=== PATIENT | female | born 1980 | race Caucasian/White ===

== ENCOUNTER 2021-11-17 17:09 | Inpatient (IN) | payer MEDICAID, SELFPAY ==
[2021-11-17] VITALS (12 sets, daily range): BP systolic 101–152; BP diastolic 48–88; PULSE 65–80; RESP 15–22; TEMP 36.1–36.4; O2SAT 97–100; BMI 51.5
--- NOTE | ~2021-11-17 | XR_ITS ---
EXAMINATION: XR chest 2V DATE: 11/17/2021 17:46 INDICATION: Left chest pain TECHNIQUE: PA and lateral views of the chest are obtained. COMPARISON: None available FINDINGS: The lungs are free of acute opacities. There is no pleural effusion or pneumothorax. The ca rdiomediastinal silhouette is normal. There is mild thoracic spondylosis. Surgical clips in the right upper quadrant are likely from prior cholecystectomy. IMPRESSION: 1. No acute cardiopulmonary abnormality. Reviewed, dictated and finalized at location F.
--- NOTE | ~2021-11-17 | CT_ITS ---
EXAMINATION: CTA chest PE protocol DATE: 11/19/2021 10:20 INDICATION: sob, elevated trop TECHNIQUE: Computed tomography angiography (CTA) of the chest was performed with 100 mL Omnipaque-350 intravenous contrast timed to evaluate the pulmonary arteries. Coronal maximum intensity projection 3D-reconstructions were created by the technologist. The dose-length product (DLP) was 969.83 mGy-cm. Automated exposure control and iterative reconstruction technique were employed. COMPARISON: 11/17/2021, x-ray chest. FINDINGS: Study quality: Adequate. Pulmonary arteries: No pulmonary emboli detected. Thoracic aorta: Normal. Lung parenchyma and airways: Clear. Thoracic inlet, axillae and chest wall: Unremarkable. Mediastinum: Normal. Heart and pericardium: Normal. Coronary artery calcifications: Absent. Pleura: Unremarkable. Upper abdomen: No significant finding. Bones: No acute osseous finding. IMPRESSION: No CT evidence of acute pulmonary embolus. Reviewed, dictated and finalized at location K.
--- NOTE | 2021-11-17 17:11 | ECG_ITS ---
Measurements Intervals [place] Rate: 66 P: 10 PA: 138 QRS: -5 QRSD: 102 T: 49 QT: 415 QTc: 435 Interpretive Statements SINUS RHYTHM POOR R-WAVE PROGRESSION INFERIOR MYOCARDIAL INFARCTION , PROBABLY OLD [40+ ms Q WAVE AND/OR ST/T ABNORMALITY IN II/aVF] NO PREVIOUS ECG AVAILABLE FOR COMPARISON Electronically Signed On 11-18-2021 7:50:54 CDT by Ruben Smith M.D.
[2021-11-17] MEDS: ASPIRIN 81 MG CHEWABLE TABLET 324 MG PO (17:35)
[2021-11-17 18:07] LABS: Basophils Absolute Auto 0.1 K/mm3 (0.0-0.1); Basophils Percent Auto 0.4 % (0.2-1.2); Eosinophils Absolute Auto 0.5 K/mm3 (0-0.3); Eosinophils Percent Auto 3.7 % (0-4.4); Hematocrit 43.4 % (37.0-47.0); Hemoglobin 14.2 g/dL (12.0-15.0); Immature Granulocyte Absolute 0.07 K/mm3 (0.00-0.031); Immature Granulocyte Percent A 0.5 % (0-0.5); Lymphocytes Absolute Auto 2.15 K/mm3 (0.9-3.2); Mean Corpuscular HGB Conc 32.7 g/dl (32-36); Mean Corpuscular Hemoglobin 30.1 pg (26-34); Mean Corpuscular Volume 91.9 fl (80-100); Mean Platelet Volume 10.3 fl (7.4-10.4); Monocytes Absolute Auto 0.7 K/mm3 (0.1-0.6); Neutrophils Absolute Auto 10.8 K/mm3 (1.3-6.7); Neutrophils Percent Auto 75.4 % (45.5-73.1); Platelet Count Result 331 k/mm3 (150-375); Red Blood Count 4.72 M/mm3 (4.2-5.4); Red Cell Distribution Width 13.2 % (11.5-14.5); White Blood Count 14.3 K/mm3 (4.5-10.0)
[2021-11-17 18:17] LABS: Alanine Aminotransferase 21 U/L (6-35); Albumin Level 4.5 g/dL (3.5-5.1); Alkaline Phosphatase 99 U/L (38-126); Anion Gap 10 mmol/L (8-16); Aspartate Amino Transferase 25 U/L (14-36); Bilirubin,Total 0.2 mg/dL (0.2-1.3); Blood Urea Nitrogen 15 mg/dL (7-17); Carbon Dioxide 27 mmol/L (22-30); Chloride 100 mmol/L (98-107); Estimated CRCL calculation 101 ml/min; Estimated Glomerular Filt Rate > 60; Glucose 162 mg/dL (65-110); Lipase 145 U/L (23-300); Potassium 3.3 mmol/L (3.4-5.0); Sodium 137 mmol/L (137-145)
[2021-11-17 18:19] LABS: Prothrombin Time 12.6 Seconds (11.1-14.7)
[2021-11-17 18:20] LABS: Partial Thromboplastin Time 30.7 SECONDS (22.3-36.8)
--- NOTE | 2021-11-17 18:27 | ED.CHESTPAIN ---
HPI - Chest Pain General Chief Complaint: Chest Pain Stated Complaint: left chest pain that began three hours ago Time Seen by Provider: 11/17/21 17:20 Source: patient Mode of arrival: ambulatory Limitations: no limitations History of Present Illness HPI narrative: 41-year-old with a history of hypertension here with complaints of left-sided chest pain started few hours ago. Patient states that each episode lasts about 15 to 20 minutes radiating into her left shoulder associated with some shortness of breath. Patient denies having any previous history of CAD. Patient states her mom was recently had an OR. She denies any cough or fever MD complaint: chest pain Onset (ago): hour(s) (4) Timing of current episode: episodic Prior episodes: No Onset: during rest Pain location: left chest Pain radiation: left arm Severity: moderate Relieving factors: nothing Exacerbating factors: nothing Risk Factors Coronary artery disease risk factors: smoking history and hypertension Thoracic aortic dissection risk factors: none Related Data On Oral Contraceptives: No Allergies Allergy/AdvReac Type Severity Reaction Status Date / Time Sulfa (Sulfonamide Allergy Unknown Other Verified 11/17/21 17:26 Antibiotics) sulfanilamide Allergy Unknown Other Verified 11/17/21 17:26 SULFAMETHIZOLE (Generic Allergy Unknown Y Uncoded 08/04/04 11:33 Allergy) Review of Systems Review of Systems: All systems reviewed & are unremarkable except as noted in HPI and below Constitutional: Constitutional: Reports no additional constitutional complaints Eyes: Eyes: Reports no additional eye complaints ENT: Reports system reviewed and no additional complaints, except as documented Cardiovascular: Cardiovascular: Reports as per HPI Respiratory: Respiratory: Reports no additional respiratory complaints Gastrointestinal: Gastrointestinal: Reports no additional gastrointestinal complaints Genitourinary: Genitourinary: Reports no additional female genitourinary complaints Musculoskeletal: Musculoskeletal: Reports no additional musculoskeletal complaints Integumentary/Breasts: Skin/Breast: Reports system reviewed and no additional complaints, except as docu PMFSH Family History Family History (Updated 09/15/10 @ 11:47 by DOCTOR UNKNOWN) Other Hypertension Social History Social History Alcohol intake: current Exam Narrative: GENERAL: Well-appearing, well-nourished, and in no acute distress. HEAD: Normocephalic, atraumatic. EYES: PERRLA and EOMI.. NECK: Supple. CHEST: Clear to auscultation. No respiratory distress. HEART: Regular rate and rhythm. No murmur heard. Normal peripheral pulses. ABDOMEN: Soft, nontender, nondistended, normal active bowel sounds. EXTREMITIES: Normal range of motion. No edema. SKIN: Warm, dry, no rash. NEURO: No focal deficits. Alert and oriented x3. PSYCH: Normal mood and affect. Course Course Emergency Course: 21-year-old with a history of hypertension, smoking now having intermittent chest pain for last 4 hours with mild shortness of breath EKG shows subtle changes in the inferior leads. Upon arrival to the ER patient had no pain. Informed patient about her lab work agreed for admission. Discussed with the hospitalist agreed to admit Discussed with Dr. Luna recommended beta-deedee, statin and Lovenox will see the patient in Vital Signs Vital signs: Vital Signs Pulse Rate 65 11/17/21 17:12 Respiratory Rate 20 11/17/21 17:12 Blood Pressure 121/62 11/17/21 17:12 Pulse Oximetry 99 11/17/21 17:12 Oxygen Delivery Room Air 11/17/21 17:12 Pulse Rate 69 11/17/21 18:43 Respiratory Rate 22 H 11/17/21 18:43 Blood Pressure 129/60 11/17/21 18:43 Pulse Oximetry 99 11/17/21 18:43 Oxygen Delivery Room Air 11/17/21 17:12 MDM - Chest Pain Differential Diagnosis Differential diagnosis: Likely unstable angina pectoris, atypical chest pain, st elevation myocard
[2021-11-17 18:31] LABS: Troponin I 0.039 ng/mL (0.000-0.034)
[2021-11-17] MEDS: METOPROLOL TARTRATE 50 MG TAB 25 MG PO (18:53)
[2021-11-17] MEDS: ENOXAPARIN 80 MG/0.8 ML SYRINGE 140 MG SUB-Q (18:54)
--- NOTE | 2021-11-17 19:31 | PM.IMHP ---
H&P: HPI History of Present Illness Date/Time: 11/17/21 19:31 Chief Complaint: Chest pain Narrative: This is a 41-year-old female with past medical history significant for hypertension, morbid obesity, tobacco dependence. Patient presents to the emergency room due to chest pain localized to the precordial area pain started at rest has been ongoing for the last 3 hours or so prior to presentation to emergency room with profuse diaphoresis, dizziness, and shortness of breath, near-syncope, pain is localized in the precordial area nonradiating, she rates it at 9/10 in intensity, denies having pain in the prior days or months, denies any fevers, rigors, chills, cough, nausea, vomiting, abdominal pain, diarrhea, calf swelling, ankle swelling, PND, orthopnea. Patient did not try any home medications. Patient preliminary workup was significant for elevated troponins and EKG with Q-waves however no prior for comparison. Patient is being admitted for further evaluation management and treatment. Review of Systems Review of Systems: Chest pain, dizziness, diaphoresis, near syncope. Constitutional: Constitutional: Denies chills, Denies fever(s), Denies malaise, Denies night sweats, Denies poor appetite and Denies weakness Eyes: Eyes: Denies change in vision ENT: Denies dysphagia, Reports dizziness and Denies odynophagia Cardiovascular: Cardiovascular: Reports chest pain, Reports chest pain at rest, Denies syncope, Denies pedal edema, Denies irregular heart rhythm, Reports lightheadedness, Denies radiating jaw, neck or arm pain, Denies palpitations, Denies dyspnea, Denies dyspnea on exertion, Denies orthopnea and Denies paroxysmal nocturnal dyspnea Respiratory: Respiratory: Denies chest congestion, Denies cough and Denies excessive phlegm production Gastrointestinal: Gastrointestinal: Denies abdominal pain, Denies dyspepsia, Denies heartburn, Denies nausea and Denies vomiting Genitourinary: Genitourinary: Denies dysuria Musculoskeletal: Musculoskeletal: Denies abnormal gait and Denies joint swelling Integumentary/Breasts: Skin/Breast: Denies rash Neurologic: Denies focal weakness and Denies Sensory deficit (Neuro) Psychiatric: Psychiatric: Reports no additional psychiatric complaints and Reports as per HPI Endocrine: Endocrine: Denies cold intolerance, Denies fatigue, Denies flushing, Denies heat intolerance, Denies polyphagia, Denies polydipsia and Denies palpitations Hematologic/Lymphatic: Hematologic/Lymphatic: Reports no additional hematologic/lymphatic complaints and Reports as per HPI Allergic/Immunologic: Allergic/Immunologic: Reports no additional allergic/immunologic complaints and Reports as per HPI [facility] Family History Family History (Updated 11/17/21 @ 21:18 by Yoanna Munoz RN) Mother Hypertension Acute myocardial infarction Father Hypertension Diabetes mellitus Prostate carcinoma Social History Social History Smoking packs per day: 0.5 Smoking cigarettes per day: 10.0 Years smoked: 15 Smoking pack-years: 7.50 Smoking status: Heavy tobacco smoker Tobacco type: cigarettes Second hand tobacco smoke exposure: Yes Alcohol intake: current Drinks per week: 1 Substance use: never Spiritual care concerns: No Meds Home Medications and Allergies Home Medications Medication Instructions Recorded Confirmed Type atenolol 100 mg tablet 1 tablet PO DAILY 11/17/21 11/17/21 History cetirizine 10 mg tablet 1 tablet PO DAILY 11/17/21 11/17/21 History lisinopril 20 2 tablet PO DAILY 11/17/21 11/17/21 History mg-hydrochlorothiazide 12.5 mg tablet norgestimate-ethinyl estradiol 1 tablet PO DAILY 11/17/21 11/17/21 History 0.18 mg/0.215mg/0.25mg-35 mcg(28)tablet (Tri-Sprintec (28)) Allergies Allergy/AdvReac Type Severity Reaction Status Date / Time Sulfa (Sulfonamide Allergy Unknown Other Verified 11/17/21 17:26 Antibiotics) sulfanilamide Allergy Unknown Other Ve
[2021-11-17] MEDS: ATORVASTATIN 40 MG TABLET PO (19:43)
[2021-11-17 19:55] LABS: SARS-CoV-2 RNA PCR Negative
--- NOTE | 2021-11-17 20:35 | PC.NURSE ---
Called IMU to give report. Report not taken at this time.
[2021-11-17 21:29] LABS: Troponin I 0.089 ng/mL (0.000-0.034)
--- NOTE | 2021-11-17 21:56 | ADMIMU ---
This patient, Jesi Charlton, was admitted to IMU status, and placed in IMU Room 205-02 on 11/17/21 at 2110. Patient/family oriented to hospital policies and general routines including ID bracelet, bed and alarms, visiting hours, pain management, procedures, bathroom and other care routines, personal items, smoking policy, room service/diet, and visiting hours. Information on how to activate the Rapid Response Team has been discussed. Patient/Family are encouraged to report perceived risks to care and to ask questions if they do not understand what they are told or what they should do.
--- NOTE | 2021-11-17 22:19 | PC.NURSE ---
This patient, Jesi Charlton, was admitted to IMU Room 205-02 on 11/17/21 at 2110. Patient/family oriented to hospital policies and general routines including ID bracelet, bed and alarms, visiting hours, pain management, procedures, bathroom and other care routines, personal items, smoking policy, room service/diet, and visiting hours. Information on how to activate the Rapid Response Team has been discussed. Patient/Family are encouraged to report perceived risks to care and to ask questions if they do not understand what they are told or what they should do.
[2021-11-17] MEDS: SODIUM CHLORIDE 0.9% IV 1,000 ML 125 ML IV CONT (23:44)
[2021-11-17] MEDS: NITROGLYCERIN OINTMENT 1 INCH DOSE TRANSDERM (23:44)
[2021-11-18] VITALS (14 sets, daily range): BP systolic 109–123; BP diastolic 55–70; PULSE 53–99; RESP 16–20; TEMP 36.2–36.7; O2SAT 97–99
--- NOTE | 2021-11-18 | ECHO_ITS ---
Patient Info Name: Jesi Charlton Age: 41 years : 1980 Gender: Female Ht: 65 in Wt: 310 lbs BSA: 2.63 m2 HR: 79 bpm BP: 123 / 67 mmHg Heart Rhythm: Sinus Rhythm Technical Quality: Fair Exam Date: 11/18/2021 7:59 AM Exam Location: [facility] Card Pulmonary Patient Status: Inpatient Admit Date: 11/17/2021 Staff Ordering Physician: Markos Lundy MD Storage Battery Charger: Daniela Cortez RDCS Attending Provider: Suzi Harrell DO Referring Physician: Nikkie CHATTERJEE; Exam Type: CA echo dop color flow w con Study Info Indications R07.9 - Chest pain, unspecified Complete two-dimensional, color flow and Doppler transthoracic echocardiogram is performed with contrast to opacify the left ventricle and to improve the deliniation of the left ventricle endocardial borders. Contrast/Agitated Saline Contrast/Ag. Saline: Definity Amount: 4.00 ml Summary 1. Technically difficult image quality because of obesity. 2. Following definity contrast injection LV systolic function is well seen and appears to be normal. 3. Modest left atrial enlargement. 4. No significant valvular dysfunction detected by Doppler. Left Ventricle Left ventricular chamber dimension is normal. Left ventricular systolic function is normal, estimated at 65-70%. The left ventricular diastolic function is normal. Right Ventricle Right ventricular chamber dimension is normal. Left Atria Left atrial chamber dimension is mildly enlarged. Right Atria Right atrial chamber dimension is normal. Aortic Valve The aortic valve is not well visualized. There is no aortic valve stenosis. Pulmonic Valve The pulmonic valve is not well visualized. Mitral Valve The mitral valve has normal leaflets. Tricuspid Valve The tricuspid valve leaflets are normal. Pericardium/Pleural The pericardium appears normal. Aorta The aortic root size at the sinus of Valsalva is normal. Left Ventricular Outflow Tract Name Value Normal LVOT 2D LVOT Diameter 2.00 cm LVOT Doppler LVOT Peak Gradient 6 mmHg LVOT Mean Gradient 2 mmHg LVOT VTI 28.60 cm LVOT VTI/AV VTI Ratio 0.96 LVOT Stroke Volume 89.57 ml LVOT CO 6.35 l/min LVOT CI 2.42 L/min/m2 Pulmonic Valve Name Value Normal PV Doppler PV Peak Gradient 8 mmHg Mitral Valve Name Value Normal MV Doppler MV Decel [place] 411.61
[2021-11-18 00:45] LABS: Troponin I 0.095 ng/mL (0.000-0.034)
[2021-11-18] MEDS: NITROGLYCERIN OINTMENT 1 INCH DOSE TRANSDERM ×4 (06:20→23:59)
[2021-11-18] MEDS: ENOXAPARIN 60 MG/0.6 ML SYRINGE SUB-Q ×2 (06:21→19:32)
[2021-11-18] MEDS: ENOXAPARIN 80 MG/0.8 ML SYRINGE SUB-Q ×2 (06:21→19:32)
[2021-11-18] MEDS: SODIUM CHLORIDE 0.9% IV 1,000 ML 125 ML IV CONT (08:42)
[2021-11-18] MEDS: atenoloL 50 MG TABLET 100 MG PO (08:43)
[2021-11-18] MEDS: lisinopriL 20 MG TABLET 40 MG PO (08:43)
[2021-11-18] MEDS: LORATADINE 10 MG TABLET PO (08:43)
[2021-11-18] MEDS: ASPIRIN 81 MG CHEWABLE TABLET PO (08:43)
--- NOTE | 2021-11-18 09:29 | PM.IMPN ---
Progress Note: A&P Assessment and Plan (1) Non-ST elevation (NSTEMI) myocardial infarction: Code(s): I21.4 - Non-ST elevation (NSTEMI) myocardial infarction <Di Werner ZACHARY LeonardC - Last Filed: 11/18/21 09:38> Status: Acute <Di Pricerao PA-C - Last Filed: 11/18/21 09:38> Assessment and Plan: Symptoms and troponin abnormalities worrisome for cardiac etiology -Troponins appear relatively flat and patient has not had any further symptoms -telemetry without abnormalities -EKG shows possible history of IA -will order echo, BNP, and another troponin -consider PE since the patient has a history of unprovoked DVT, smokes, on control, and recently traveled by vehicle to floor down. Will obtain CTA. -continue Lovenox 80 mg every 12 hours for possible cardiac etiology -plan discussed with Cardiology <Di WatsonRABIA Banks-C - Last Filed: 11/18/21 09:38> (2) Hypertension: Code(s): I10 - Essential (primary) hypertension <Di Werner Horacio PA-C - Last Filed: 11/18/21 09:38> Status: Acute <Di Werner Horacio PA-C - Last Filed: 11/18/21 09:38> Assessment and Plan: Last blood pressure 111/55 -continue atenolol and lisinopril <Di Alphonso Horacio PA-C - Last Filed: 11/18/21 09:38> (3) Tobacco dependence: Code(s): F17.200 - Nicotine dependence, unspecified, uncomplicated <Di Pricerao PA-C - Last Filed: 11/18/21 09:38> Status: Acute <Di Werner Horacio PA-C - Last Filed: 11/18/21 09:38> Assessment and Plan: Patient is aware that she needs to quit smoking especially due to her history of blood clots and current control -nicotine patch applied <Di WatsonRABIA Banks-C - Last Filed: 11/18/21 09:38> (4) Hypokalemia: Code(s): E87.6 - Hypokalemia <Di Leonard PA-C - Last Filed: 11/18/21 09:38> Status: Acute <JASPER Ray Last Filed: 11/18/21 09:38> Assessment and Plan: Noted to be 3.3 yesterday. Repeat BMP as well as magnesium. Supplement as needed <JASPER Ray Last Filed: 11/18/21 09:38> Time Spent With Patient Time with patient: 25 - 35 minutes <JASPER Ray Last Filed: 11/18/21 09:38> Subjective Date/time seen: 11/18/21 09:29 <JASPER Ray Last Filed: 11/18/21 09:38> Interval history: Pt is a 41-year-old female here for chest pain. Patient states yesterday when she was sitting watching TV she started getting very sweaty is starting having chest pain as well as arm pain. Since she has been at the hospital she has not had any of these issues. She has no cardiac history. She does tell me that she had a unprovoked DVT back in 2007. She continues to smoke, is on control, and recently drove to [place] 2 weeks ago. She denies leg swelling or shortness of breath currently and is currently hungry. <Di Leonard PA-C - Last Filed: 11/18/21 09:38> Review of Systems Review of Systems: All systems reviewed & are unremarkable except as noted in HPI and below <JASPER Ray Last Filed: 11/18/21 09:38> Exam Narrative: General: Overweight patient was a comfortably in bed no acute distress HEENT: normocephalic Neck: supple Neuro: Alert and oriented x4 CV:RRR with no murmurs. Telemetry with no abnormalities Resp:CTA Abd: Soft, non distended. No pain to palpation. Positive bowel sounds Extremities: No swelling, erythema, or pain to palpation. <JASPER Ray Last Filed: 11/18/21 09:38> Objective Data Vital Signs Vital Signs: Vital Signs - 24 hr 11/17/21 17:12 11/17/21 17:23 11/17/21 17:25 Temperature Pulse Rate 65 70 70 Respiratory Rate 20 18 Blood Pressure 121/62 107/72 Pulse Oximetry 99 99 Oxygen Delivery Room Air 11/17/21 18:43 11/17/21 18:53 11/17/21 18:59 Temperature Pulse Rate 69 73 75 Respiratory Rate 22 H 15 Blood Pressure 129/60
[2021-11-18 09:41] LABS: Anion Gap 7 mmol/L (8-16); Blood Urea Nitrogen 11 mg/dL (7-17); Calcium 8.5 mg/dL (8.4-10.2); Carbon Dioxide 27 mmol/L (22-30); Chloride 102 mmol/L (98-107); Estimated CRCL calculation 127 ml/min; Estimated Glomerular Filt Rate > 60; Glucose 96 mg/dL (65-110); Magnesium 1.6 mg/dL (1.6-2.3); Potassium 3.5 mmol/L (3.4-5.0); Sodium 136 mmol/L (137-145)
--- NOTE | 2021-11-18 09:47 | PM.CNCAR ---
Assessment and Plan Assessment and plan (1) Chest pain: Code(s): R07.9 - Chest pain, unspecified Status: Acute Plan This is a 41-year-old woman who had several episodes of waxing waning chest pain yesterday prompting admission to the hospital. Her troponin levels are slightly elevated but flat, not really a convincing pattern for acute coronary syndrome. Her ECG is not normal with some inferior Q-waves but no acute ST segment changes. The hospitalist team has appropriately ordered a CT angiogram of her chest since she does have risk for PE being a smoker, on control pills and prior history of venous thrombosis. An echocardiogram has also been weak performed. If her CTA of the chest demonstrates a PE that I would not pursue further cardiac assessment at this time. If she does not have a pulmonary embolism we will need to recommend angiography which I would anticipate doing on Saturday since she appears to be quite stable. Ruben Smith MD [facility] History of Present Illness History of Present Illness Consult date/time: 11/18/21 09:47 Consult reason: chest pain Reason For Visit: NSTEMI Narrative: This is a 41-year-old woman who is unknown to me prior to this encounter. Very interestingly her mother is in the hospital recovering from a myocardial infarction from some couple of days ago. The patient was at home yesterday afternoon watching a television show and suddenly noticed she was feeling unwell she said she had a strange sensation in her chest that was shortly after that followed by the sense of weakness diaphoresis and some nausea. She then had more significant retrosternal pressure-like chest pain radiating to the left side of the midline. She stated she has several of these episodes in a waxing and waning fashion each episode lasting for 10-20 minutes at a time. After several of these she had her family bring her to the emergency room for evaluation. In the emergency department her ECG shows a sinus mechanism with Q-waves in the 2 of the 3 inferior leads but no significant ST segment deviation. Troponin levels are slightly out of normal range and are essentially flat. She was treated with aspirin in the emergency room after I was consulted I advised them to administer a dose of Lovenox, beta-deedee and a statin and she was admitted to the IMU. She has been free of these symptoms since admission to the IMU. She is a longstanding cigarette smoker and does have a prior history of venous thrombosis. I do not have records of that event available to me as I dictate this she was treated in the hospital and by Dr. Acosta, her PCP. She thinks this occurred back in about 2007. She denies any symptoms of exertional chest pain she has not been experiencing any orthopnea PND or edema. She does have some occasional momentary palpitations that have not been investigated further. She has never had any symptoms of syncope or near syncope. An echocardiogram has been performed this morning which has yet to be interpreted. A CT angiogram of her chest is also being ordered. She does have a history of a significant automobile trip recently with her mother. Review of Systems Constitutional: Constitutional: Reports no additional constitutional complaints Eyes: Eyes: Reports no additional eye complaints ENT: Reports system reviewed and no additional complaints, except as documented Cardiovascular: Cardiovascular: Reports as per HPI Respiratory: Respiratory: Reports no additional respiratory complaints Gastrointestinal: Gastrointestinal: Reports no additional gastrointestinal complaints Musculoskeletal: Musculoskeletal: Reports no additional musculoskeletal complaints Integumentary/Breasts: Skin/Breast: Reports system reviewed and no additional complaints, except as docu Neurologic: Reports system reviewed and no additional complaints, except as documented Endocrine: Endocrine: Reports no additional endocrine complaints
[2021-11-18 09:59] LABS: NT Pro B Type Natriuretic Pept 164 pg/mL (5-100)
[2021-11-18] MEDS: PERFLUTREN LIPID MICROSPHERES 1.5 ML VIAL DILUTED TO 10 ML TOTAL VOLUME IV PUSH (10:00)
[2021-11-18] MEDS: CENTRAL LINE FLUSH 10 ML IV PUSH (21:02)
[2021-11-19] VITALS (12 sets, daily range): BP systolic 114–162; BP diastolic 60–81; PULSE 61–83; RESP 16–20; TEMP 36.1–36.8; O2SAT 94–100
[2021-11-19] MEDS: CENTRAL LINE FLUSH 10 ML IV PUSH ×3 (04:28→22:37)
[2021-11-19] MEDS: CENTRAL LINE FLUSH 20 ML IV PUSH (04:28)
[2021-11-19 04:42] LABS: Hematocrit 35.4 % (37.0-47.0); Hemoglobin 12.1 g/dL (12.0-15.0); Mean Corpuscular HGB Conc 34.2 g/dl (32-36); Mean Corpuscular Hemoglobin 30.4 pg (26-34); Mean Corpuscular Volume 88.9 fl (80-100); Mean Platelet Volume 10.4 fl (7.4-10.4); Platelet Count Result 292 k/mm3 (150-375); Red Blood Count 3.98 M/mm3 (4.2-5.4); Red Cell Distribution Width 12.8 % (11.5-14.5); White Blood Count 11.2 K/mm3 (4.5-10.0)
[2021-11-19 04:49] LABS: Anion Gap 3 mmol/L (8-16); Blood Urea Nitrogen 9 mg/dL (7-17); Calcium 8.4 mg/dL (8.4-10.2); Carbon Dioxide 30 mmol/L (22-30); Chloride 102 mmol/L (98-107); Cholesterol 150 mg/dL (0-200); Estimated CRCL calculation 127 ml/min; Estimated Glomerular Filt Rate > 60; Glucose 93 mg/dL (65-110); HDL Direct 25 mg/dL; Potassium 3.4 mmol/L (3.4-5.0); Sodium 135 mmol/L (137-145); Triglycerides 390 mg/dL (<150)
[2021-11-19 04:59] LABS: LDL Cholesterol Direct 76 mg/dL
[2021-11-19] MEDS: NITROGLYCERIN OINTMENT 1 INCH DOSE TRANSDERM ×4 (06:16→23:54)
[2021-11-19] MEDS: ENOXAPARIN 60 MG/0.6 ML SYRINGE SUB-Q ×2 (06:17→19:12)
[2021-11-19] MEDS: ENOXAPARIN 80 MG/0.8 ML SYRINGE SUB-Q ×2 (06:17→19:11)
--- NOTE | 2021-11-19 09:11 | PM.PNCARD ---
Progress Note: A&P Assessment and Plan (1) Chest pain: Code(s): R07.9 - Chest pain, unspecified Status: Acute Plan 41-year-old lady with episodes of chest pain prompting admission to the hospital. Plans are to get this CTA of the chest done today. If she does not have a pulmonary embolism I did recommend proceeding with coronary angiography. The patient feels well now she is wondering if angiography can be done as an outpatient. Will discuss this further with her after we see the CTA results Ruben Smith MD [facility] Subjective Date/time seen: Date of service: 11/19/21 09:11 Interval history: Follow-up visit in this 41-year-old woman with: Episode of chest pain small troponin rise creating concern for CAD/ACS. Patient also was significant risk for pulmonary embolism. CTA of the chest was ordered yesterday but a surprisingly could not be done apparently the Radiology Department was very busy with ER case is and she did not have adequate IV access until later in the day. She is asymptomatic today and has no complaints Exam Const: General: comfortable and no acute distress Other: Pleasant obese lady no distress HENMT: Mouth: Yes moist mucous membranes Eyes: Sclera: sclerae normal Pupils: Equal, round and reactive pupils present Neck: Neck: supple and no JVD Other: Carotids intact no bruits Resp: Effort & Inspection: normal respiratory effort Auscultation: clear to auscultation bilaterally Cardio: Rate: regular rate Rhythm: regular rhythm Other: PMI not palpable otherwise unremarkable exam GI: GI Palp: Yes Soft to palpation Auscultation: normal bowel sounds Skin: General skin exam: normal color Neuro: Other: Patient has no edema good perfusion Extrem: General: normal to inspection Objective Data Vital Signs Vital Signs: Vital Signs - 24 hr 11/18/21 10:00 11/18/21 12:00 11/18/21 12:00 Temperature 36.4 C Pulse Rate 65 61 65 Respiratory Rate 20 Blood Pressure 109/63 Pulse Oximetry 98 Oxygen Delivery 11/18/21 14:00 11/18/21 16:00 11/18/21 16:00 Temperature 36.3 C L Pulse Rate 65 53 L 64 Respiratory Rate 20 Blood Pressure 114/61 Pulse Oximetry 98 Oxygen Delivery 11/18/21 18:00 11/18/21 20:00 11/18/21 20:00 Temperature 36.2 C L Pulse Rate 72 66 66 Respiratory Rate 18 18 Blood Pressure 117/70 Pulse Oximetry 97 97 Oxygen Delivery Room Air 11/18/21 20:00 11/18/21 22:00 11/19/21 00:00 Temperature 36.1 C L Pulse Rate 72 66 69 Respiratory Rate 16 Blood Pressure 123/60 Pulse Oximetry 98 Oxygen Delivery 11/18/21 23:56 11/19/21 00:00 11/19/21 01:48 Temperature Pulse Rate 69 80 73 Respiratory Rate 16 Blood Pressure Pulse Oximetry 98 Oxygen Delivery Room Air 11/19/21 04:00 11/19/21 04:00 11/19/21 04:00 Temperature 36.2 C L Pulse Rate 67 68 68 Respiratory Rate 16 16 Blood Pressure 114/71 Pulse Oximetry 94 94 Oxygen Delivery Room Air 11/19/21 05:36 11/19/21 08:00 Temperature 36.4 C L Pulse Rate 71 71 Respiratory Rate 20 Blood Pressure 141/81 H Pulse Oximetry 98 Oxygen Delivery Intake/Output Intake/Output: Intake & Output 11/16/21 11/17/21 11/18/21 11/19/21 23:59 23:59 23:59 23:59 Intake Total 1940 500 Output Total 400 1140 Balance -400 800 500 Meds/Results Medications: Active Medications Generic Name Dose Route Start Last Admin Trade Name Wallace PRN Reason Stop Dose Admin Acetaminophen 650 mg 11/17/21 18:51 Acetaminophen 325 Mg Tablet PO Q4H PRN Mild Pain (1-3) or Fever Aspirin 81 mg 11/18/21 08:00 11/18/21 08:43 Aspirin 81 Mg Chewable Tablet PO 81 mg DAILY@0800 [facility] Administration Atenolol 100 mg 11/18/21 09:00 11/18/21 08:43 Atenolol 50 Mg Tablet PO 100 mg DAILY [facility] Administration Enoxaparin Sodium 60 mg 11/18/21 07:00 11/19/21 06:17 Enoxaparin 60 Mg/0.6 Ml Syringe SUB-Q 60 mg Q12H [facility]
[2021-11-19 09:30] LABS: Beta HCG Quantitative < 2.39 mIU/ML
[2021-11-19] MEDS: LORATADINE 10 MG TABLET PO (09:31)
[2021-11-19] MEDS: ASPIRIN 81 MG CHEWABLE TABLET PO (09:31)
[2021-11-19] MEDS: lisinopriL 20 MG TABLET 40 MG PO (09:31)
[2021-11-19] MEDS: atenoloL 50 MG TABLET 100 MG PO (09:31)
--- NOTE | 2021-11-19 11:19 | PM.IMPN ---
Progress Note: A&P Assessment and Plan (1) Non-ST elevation (NSTEMI) myocardial infarction: Code(s): I21.4 - Non-ST elevation (NSTEMI) myocardial infarction Status: Acute Assessment and Plan: Patient presents to the emergency room with complaints of chest pain with diaphoresis, dizziness and shortness of breath. Troponin climbed to 0.1. Echocardiogram shows EF of 65-70% and no wall motion abnormalities. EKG shows possible old inferior PA and poor R-wave progression. Telemetry showing no significant dysrhythmias. Chest x-ray clear. COVID test negative. PEs being considered. CTA of the chest has been ordered. She is on control. Beta hCG was negative. Continue therapeutic dose of Lovenox. If CTA of the chest is negative for PE, consider cardiac catheterization in the morning. Continue aspirin, nitropaste and atenolol. (2) Hypertension: Code(s): I10 - Essential (primary) hypertension Status: Acute Assessment and Plan: Patient's blood pressure was reviewed on 11/19 Blood pressure remains well controlled. Will continue current medications of atenolol and lisinopril (3) Tobacco dependence: Code(s): F17.200 - Nicotine dependence, unspecified, uncomplicated Status: Acute Assessment and Plan: Patient was educated about the benefits of smoking cessation. (4) Hypokalemia: Code(s): E87.6 - Hypokalemia Status: Acute Assessment and Plan: Noted to have a potassium of 3.3. This has been replaced. Potassium remains low end of normal. Will replace again. Subjective Date/time seen: 11/19/21 11:19 Interval history: 41yo woman with hx of to PACU abuse and hypertension here for chest pain. Assuming care. Chart reviewed. No further chest pain. She said the chest pain lasted total 2-1/2 hours with these intermittent 15 minute episodes. She does not have history of coronary disease. She has never had a stress test. Exam Narrative: AF 97.5 141/81 71 20 98% ra Gen - NARD Chest - CTA bilaterally, nml RR CV - RRR S1/S2. Telemetry showing PVCs. Abd - Soft, obese, nontender, Positive BS Ext - No pedal edema. Negative Homans sign. Psych - Nml mood and affect Skin - Warm and dry Objective Data Vital Signs Vital Signs: Vital Signs - 24 hr 11/18/21 12:00 11/18/21 12:00 11/18/21 14:00 Temperature 97.6 F Pulse Rate 61 65 65 Respiratory Rate 20 Blood Pressure 109/63 Pulse Oximetry 98 Oxygen Delivery 11/18/21 16:00 11/18/21 16:00 11/18/21 18:00 Temperature 97.4 F L Pulse Rate 53 L 64 72 Respiratory Rate 20 Blood Pressure 114/61 Pulse Oximetry 98 Oxygen Delivery 11/18/21 20:00 11/18/21 20:00 11/18/21 20:00 Temperature 97.1 F L Pulse Rate 66 66 72 Respiratory Rate 18 18 Blood Pressure 117/70 Pulse Oximetry 97 97 Oxygen Delivery Room Air 11/18/21 22:00 11/19/21 00:00 11/18/21 23:56 Temperature 97 F L Pulse Rate 66 69 69 Respiratory Rate 16 16 Blood Pressure 123/60 Pulse Oximetry 98 98 Oxygen Delivery Room Air 11/19/21 00:00 11/19/21 01:48 11/19/21 04:00 Temperature Pulse Rate 80 73 67 Respiratory Rate Blood Pressure Pulse Oximetry Oxygen Delivery 11/19/21 04:00 11/19/21 04:00 11/19/21 05:36 Temperature 97.2 F L Pulse Rate 68 68 71 Respiratory Rate 16 16 Blood Pressure 114/71 Pulse Oximetry 94 94 Oxygen Delivery Room Air 11/19/21 08:00 Temperature 97.5 F L Pulse Rate 71 Respiratory Rate 20 Blood Pressure 141/81 H Pulse Oximetry 98 Oxygen Delivery Intake/Output Intake/Output: Intake & Output 11/16/21 11/17/21 11/18/21 11/19/21 23:59 23:59 23:59 23:59 Intake Total 1940 500 Output Total 400 1140 Balance -400 800 500 Meds/Results Medications: Active Medications Generic Name Dose Route Start Last Admin Trade Name Freq PRN Reason Stop Dose Admin Acetaminophen 650 mg 11/17/21 18:51 Acet
[2021-11-19] MEDS: POTASSIUM CHLORIDE 20 MEQ TABLET 40 MEQ PO (12:38)
[2021-11-20] VITALS (20 sets, daily range): BP systolic 112–158; BP diastolic 51–92; PULSE 61–104; RESP 12–18; TEMP 36.2–36.9; O2SAT 93–100
[2021-11-20] MEDS: ACETAMINOPHEN 325 MG TABLET 650 MG PO (04:22)
[2021-11-20 05:13] LABS: Anion Gap 5 mmol/L (8-16); Blood Urea Nitrogen 10 mg/dL (7-17); Calcium 8.7 mg/dL (8.4-10.2); Carbon Dioxide 31 mmol/L (22-30); Chloride 103 mmol/L (98-107); Estimated CRCL calculation 127 ml/min; Estimated Glomerular Filt Rate > 60; Glucose 106 mg/dL (65-110); Magnesium 1.7 mg/dL (1.6-2.3); Potassium 3.7 mmol/L (3.4-5.0); Sodium 139 mmol/L (137-145)
[2021-11-20] MEDS: NITROGLYCERIN OINTMENT 1 INCH DOSE TRANSDERM (05:59)
[2021-11-20] MEDS: CENTRAL LINE FLUSH 10 ML IV PUSH ×2 (06:20→18:07)
[2021-11-20] MEDS: atenoloL 50 MG TABLET 100 MG PO (09:17)
[2021-11-20] MEDS: lisinopriL 20 MG TABLET 40 MG PO (09:17)
[2021-11-20] MEDS: LORATADINE 10 MG TABLET PO (09:18)
[2021-11-20] MEDS: ASPIRIN 81 MG CHEWABLE TABLET PO (09:18)
--- NOTE | 2021-11-20 10:17 | WPDMODSED ---
Moderate Sedation Note-Pt Data Patient Data Diagnosis: chest pain with troponin elevation Present Complaint: this is a 41-year-old woman who entered the hospital over the weekend with an episode of chest pain that was atypical of angina. Her ECG was benign but her troponin level did show a modest increase. In this setting angiography has been recommended Procedure to be performed/Plan: left heart catheterization Allergies Allergy/AdvReac Type Severity Reaction Status Date / Time Sulfa (Sulfonamide Allergy Unknown Other Verified 11/17/21 17:26 Antibiotics) sulfanilamide Allergy Unknown Other Verified 11/17/21 17:26 SULFAMETHIZOLE (Generic Allergy Unknown Y Uncoded 08/04/04 11:33 Allergy) Home Medications Medication Instructions Recorded Confirmed Type atenolol 100 mg tablet 1 tablet PO DAILY 11/17/21 11/17/21 History cetirizine 10 mg tablet 1 tablet PO DAILY 11/17/21 11/17/21 History lisinopril 20 2 tablet PO DAILY 11/17/21 11/17/21 History mg-hydrochlorothiazide 12.5 mg tablet norgestimate-ethinyl estradiol 1 tablet PO DAILY 11/17/21 11/17/21 History 0.18 mg/0.215mg/0.25mg-35 mcg(28)tablet (Tri-Sprintec (28)) Current Medications: Active Medications Acetaminophen (Acetaminophen 325 Mg Tablet) 650 mg PO Q4H PRN PRN Reason: Mild Pain (1-3) or Fever Last Admin: 11/20/21 04:22 Dose: 650 mg Aspirin (Aspirin 81 Mg Chewable Tablet) 81 mg PO DAILY@0800 [facility] Last Admin: 11/20/21 09:18 Dose: 81 mg Atenolol (Atenolol 50 Mg Tablet) 100 mg PO DAILY [facility] Last Admin: 11/20/21 09:17 Dose: 100 mg Enoxaparin Sodium (Enoxaparin 60 Mg/0.6 Ml Syringe) 60 mg SUB-Q Q12H [facility] Last Admin: 11/20/21 08:59 Dose: Not Given Enoxaparin Sodium (Enoxaparin 80 Mg/0.8 Ml Syringe) 80 mg SUB-Q Q12H [facility] Last Admin: 11/20/21 09:00 Dose: Not Given Sodium Chloride (Normal Saline Iv) 1,000 mls @ 125 mls/hr IV CONT .Q8H ONE Stop: 11/20/21 18:13 Lisinopril (Lisinopril 20 Mg Tablet) 40 mg PO QAM [facility] Last Admin: 11/20/21 09:17 Dose: 40 mg Loratadine (Loratadine 10 Mg Tablet) 10 mg PO QAM [facility] Last Admin: 11/20/21 09:18 Dose: 10 mg Miscellaneous Information (Vnrlnm-Qcn-Csovrgvcz Is Nonformulary - Can Patient Use From Home?) 0 each XX [facility] Stop: 12/18/21 00:00 Last Admin: 11/19/21 00:10 Dose: Not Given Morphine Sulfate (Morphine Sulfate (*Crx) 4 Mg/Ml Inj) 4 mg IV PUSH Q2H PRN PRN Reason: Pain Rated 7-10 Nitroglycerin (Nitroglycerin Sl 0.4 Mg Tablet) 0.4 mg SUBLINGUAL Q5MIN PRN PRN Reason: Chest Pain Nitroglycerin (Nitroglycerin Ointment 1 Inch Dose) 1 inch TRANSDERM Q6HR [facility] Last Admin: 11/20/21 05:59 Dose: 1 inch Non-Formulary Medication (Norgestimate-Ethinyl Estradiol [Tri-Sprintec (28)]) 1 tablet PO DAILY [facility] Stop: 12/18/21 08:59 Ondansetron HCl (Ondansetron Inj 4 Mg/2 Ml Vial) 4 mg IV PUSH Q4H PRN PRN Reason: Nausea Perflutren Lipid Microsphere (Perflutren Lipid Microspheres 1.5 Ml Vial Diluted To 10 Ml Total Volume) 0 ml IV PUSH ONCE PRN; Protocol PRN Reason: adequate visualization Perflutren Lipid Microsphere (Perflutren Lipid Microspheres 1.5 Ml Vial Diluted To 10 Ml Total Volume) 0 ml IV PUSH ONCE PRN; Protocol PRN Reason: adequate visualization Sodium Chloride (Central Line Flush) 10 ml IV PUSH Q8HR [facility] Last Admin: 11/20/21 06:20 Dose: 10 ml Sodium Chloride (Central Line Flush) 10 ml IV PUSH PRN PRN PRN Reason: with TPN bag changes Sodium Chloride (Central Line Flush) 20 ml IV PUSH PRN PRN PRN Reason: after blood draws Last Admin: 11/19/21 04:28 Dose: 20 ml Sedation/Anesthesia: No previous sedation/anesthesia problems (including family history). [facility] Family History Family History (Updated 11/17/21 @ 21:18 by Yoanna Munoz, RN) Mother Hypertension Acute myocardial infarction Father Hypertension Diabetes mellitus Prostate carcinoma Social History Social History Smoking packs per day: 0.5 Smoking cigarettes per day: 10.0
--- NOTE | 2021-11-20 10:18 | P.PCNCC_ITS ---
Cardiac Cath Procedure Note Date of procedure:: 11/20/21 Performing physician:: Ruben Smith MD Indication:: chest pain, troponin elevation Brief clinical history:: this is a 41-year-old woman with no previous history of coronary artery disease. She entered the hospital with an episode of chest pain that was clinically felt to be atypical of angina. In the face of this her troponin level did show a modest rise and she was given the diagnosis of acute coronary syndrome and admitted to the hospital. Procedure Procedure performed:: Left ventriculogram coronary angiogram Angio-Seal to right femoral artery Sedation/Medication given:: fentanyl 50 mg Versed 2 mg case start time 953 a.m. case end time 10:14 a.m. Access site:: right femoral artery Estimated blood loss:: 25 cc Procedure note:: patient was brought to the cardiac catheterization lab in the postabsorptive state where the right femoral triangle was prepared and draped in the usual fashion. Anesthesia was provided% lidocaine infiltrated locally. Using the modified Seldinger technique 5 Maltese sheath was placed in the right common femoral artery after this left heart catheterization was carried out the 5 Maltese angled pigtail catheter was used to perform left ventriculography in the STANLEY projection and to measure left-sided hemodynamics. Following this a standard 5 Maltese FL4 catheter was used to engage and inject the left coronary artery in multiple projections. A 5 Maltese JR4 catheter was used to engage and inject the right coronary artery. Following this the cineangiograms were reviewed and the case was terminated. An angiogram was done of the femoral artery through the sheath after which a 6 Maltese Angio-Seal device was used to provide hemostasis at the puncture site. There was a good result. Patient left the lab instructor with apparent complications and no evidence of groin hematoma. Findings:: Hemodynamics: Central aortic pressure 148/82 left ventricle 148/5 end- diastolic 10. No gradient across the aortic valve. Left ventricle: The left ventricle is normal in size all segments contract appropriately the global left ventricular ejection fraction is normal to 60%. There were no wall motion abnormalities. The left main coronary artery is nicely patent the left anterior descending is a large caliber vessel extending down to and around the apex the LAD and its branches are smooth and angiographically normal. The left circumflex artery is a large caliber vessel giving rise to the marginal branches and 1 posterior branch. The circumflex system is smooth and angiographically free of disease. The right coronary artery is moderate caliber and dominant to the posterior circulation the right coronary artery is smooth and angiographically normal in appearance. Conclusion:: 1. Right coronary dominant circulation with no evidence of coronary disease 2. normal left ventricular systolic function 3. based on these findings the patient's chest pain syndrome is noncardiac Ruben Smith MD [facility]
[2021-11-20] MEDS: SODIUM CHLORIDE 0.9% IV 1,000 ML 125 ML IV CONT (12:20)
--- NOTE | 2021-11-20 12:22 | PC.NURSE ---
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 same as when in school laboratory technician. Patient is A&O x4. No distress noted. Groin set checked, no bruising, bleeding or swelling, no bruit detected by auscultation.
--- NOTE | 2021-11-20 15:18 | PC.NURSE ---
Doppler pedal pulses faint, posterior tibial pulses diminished, popliteal pulses normal. Patient denies loss of sensation, bilateral legs and feet are warm to touch. No swelling or discoloration noted.
--- NOTE | 2021-11-20 18:15 | PM.DS ---
DS: Admitting Diagnosis Discharge Date 11/20/21 Admitting Diagnosis Chest pain DS: Discharge Diagnosis Discharge Diagnosis (1) Non-ST elevation (NSTEMI) myocardial infarction: Code(s): I21.4 - Non-ST elevation (NSTEMI) myocardial infarction Status: Acute (2) Hypertension: Code(s): I10 - Essential (primary) hypertension Status: Acute (3) Tobacco dependence: Code(s): F17.200 - Nicotine dependence, unspecified, uncomplicated Status: Acute (4) Hypokalemia: Code(s): E87.6 - Hypokalemia Status: Acute DS: Summary Hospital Course Hospital Course: Patient presented to the emergency room with complaints of chest pain with diaphoresis, dizziness and shortness of breath. Troponin climbed to 0.1. Echocardiogram shows EF of 65-70% and no wall motion abnormalities. EKG shows possible old inferior ID and poor R-wave progression. Telemetry showing no significant dysrhythmias. Chest x-ray was clear. COVID test was negative. CTA of the chest showing no PE or acute findings. She is on control. Beta hCG was negative. She was on therapeutic dose of Lovenox. Cardiology was consulted and cardiac catheterization was recommended. She underwent a LHC which showed a righ coronary dominate circulation with no evidence of coronary disease. Patient was educated about the benefits of smoking cessation especially since she is on control. She overall did well and was able to be discharged home on 11/20/21. Status at Discharge Cognitive/behavioral status at discharge: stable Time Spent with Patient Time attestation: Total time spent providing and/or coordinating discharge services: 35 minutes Time spent: Greater than 30 minutes Exam Narrative: AF 97.6 117/73 69 16 98% ra Gen - NARD Chest - CTA bilaterally, nml RR CV - RRR S1/S2 Abd - Soft, obese, nontender, Positive BS Ext - No pedal edema. right groin dressing clean and dry Psych - Nml mood and affect Skin - Warm and dry DS: Data Data Completed and Pending Labs on day of discharge: Labs from last 24 hours 11/20/21 04:58 Sodium 139 Potassium 3.7 Chloride 103 Carbon Dioxide 31 H Anion Gap 5 L BUN 10 Creatinine 0.70 Estim Creat Clear Calc 127 Estimated GFR > 60 Glucose 106 Calcium 8.7 Magnesium 1.7 Discharge Plan Discharge Attending physician on discharge: Rodger Sofia Consulting providers: Ruben Smith Discharging Clinician: Rodger Sofia Anticipated Discharge Date/Time: 11/20/21 18:21 Patient Disposition: Home, Self-Care Activity: other - see discharge instructions Diet: heart healthy Discharge Instructions: [facility] [address] [place] [address] DISCHARGE INSTRUCTIONS - POST CARDIAC CATH Activity restrictions 1. No driving for 24 hours. 2. No lifting, pushing or pulling more than 10 pounds for 1 week. 3. No strenuous exercise or activity (including sexual activity) for 1 week. 4. May shower but no tub baths or swimming pool for 1 week. Avoid commercial hot tubs. They are too hot. Wound care 1. May remove gauze dressing tomorrow and place Band aid over site. 2. Remove Band aid on 11/22/2021 and leave site open to air. 3. Observe for redness, swelling, drainage or bleeding. 4. Wash gently and pat dry when showering. *For any other questions please call the
== END 2021-11-20 19:13 | disposition home or self-care (01) | DRG 192 ==
LOC: ANHED 18:44 → ANHIMU 20:11
PROVIDERS: Emergency Medicine; Physician Assistant; Specialist; Admitting Provider Student in an Organized Health Care Education/Training Program; Emergency Provider Family Medicine; PCP Family Medicine; Visit Provider Internal Medicine
PROC: 4A023N7 Measurement of Cardiac Sampling and Pressure, Left Heart, Percutaneous Approach (ICD-10-PCS; CPT 93452; principal; 2021-11-20 10:00)
PROC: 4A023N7 Measurement of Cardiac Sampling and Pressure, Left Heart, Percutaneous Approach (ICD-10-PCS; 2021-11-20 10:00)
DX: R07.89 Other chest pain (principal); R77.8 Other specified abnormalities of plasma proteins; I10 Essential (primary) hypertension; Z20.822 Contact with and (suspected) exposure to COVID-19; E87.6 Hypokalemia; F17.210 Nicotine dependence, cigarettes, uncomplicated; E66.01 Morbid (severe) obesity due to excess calories; Z68.43 Body mass index [BMI] 50.0-59.9, adult
CPT/HCPCS: 36415; 36569; 71046; 71275; 80048; 80053; 80061; 83690; 83735; 83880; 84484; 84702; 85025; 85027; 85610; 85730; 93005; 93458; 99285; A9270; C1751; C1760; C1887; C1894; C8929; C9803; G0269; J1644; J1650; J2250; J3010; J7030; J7040; Q9957; Q9967; U0003; U0005